=== PATIENT | male | born 1970 | race Two or more races ===

== ENCOUNTER → 2016-11-16 | Emergency (ER) | payer SELFPAY ==
[~2016-11-16] VITALS: Ht 170.2 cm; Wt 72.6 kg
[~2016-11-16] MED LIST: UNOBMED
[2016-11-16 22:14] VITALS: BP 149/83
[2016-11-16 22:18] LABS: BASOPHILS % (AUTO) 1.4 % (0.0-2.0); EOSINOPHILS % (AUTO) 1.4 % (0.0-3.0); MEAN CORPUSCULAR HEMOGLOBIN 31.7 PG (27.0-31.0); MEAN CORPUSCULAR HGB CONC 32.9 G/DL (32.0-36.0); MEAN CORPUSCULAR VOLUME 96 FL (80-99); MEAN PLATELET VOLUME 7.2 FL (6.5-10.1); MONOCYTES % (AUTO) 6.2 % (1.0-10.0); NEUTROPHILS % (AUTO) 57.9 % (45.0-75.0); PLATELET COUNT 278 K/UL (150-450); RED BLOOD COUNT 4.24 M/UL (4.70-6.10); RED CELL DISTRIBUTION WIDTH 12.2 % (11.6-14.8); WHITE BLOOD COUNT 8.9 K/UL (4.8-10.8)
[2016-11-16 22:35] LABS: ACETAMINOPHEN < 10 ug/mL (10-30); ALCOHOL < 10 mg/dL; SODIUM 142 mEQ/L (135-145)
[2016-11-16 22:38] LABS: ALANINE AMINOTRANSFERASE 58 U/L (3-41); ANION GAP 12 (5-15); ASPARTATE AMINO TRANSFERASE 71 U/L (5-40); CALCIUM 9.1 mg/dL (8.6-10.2); CARBON DIOXIDE 31 mEQ/L (20-30); CHLORIDE 99 mEQ/L (98-107); CREATININE 1.1 mg/dL (0.7-1.2); GLOMERULAR FILTRATION RATE > 60 mL/min (>60); HEMOLYSIS 2; POTASSIUM 4.2 mEQ/L (3.4-4.9); TOTAL PROTEIN 6.4 g/dL (6.6-8.7)
--- NOTE | 2016-11-16 23:29 | Emergency Room Report ---
History of Present Illness General Chief Complaint: Behavioral Complaint Source: EMS Present Illness HPI Patient is brought in by EMS. He was acting bizarrely on a city bus and would not get off the bus. So he is brought in by [place] [employer] for bizarre behavior. He is not in custody. He refuses to answer any questions. Allergies: Coded Allergies: UNABLE TO ASSESS (Unverified , 11/16/16) Patient History Past Medical History: unable to obtain Past Surgical History: unable to obtain Pertinent Family History: unable to obtain Nursing Documentation-[facility] Past Medical History Deferred: Pt Cognitively Impaired Review of Systems All Other Systems: limited Physical Exam Vital Signs Date Time Temp Pulse Resp B/P Pulse Ox O2 Delivery O2 Flow Rate FiO2 11/16/16 18:42 98.1 91 18 149/83 99 Sp02 EP Interpretation: reviewed, normal General Appearance: no apparent distress, GCS 15, non-toxic, other - sleeping Head: normocephalic, atraumatic Eyes: bilateral eye PERRL, bilateral eye normal inspection ENT: hearing grossly normal, normal pharynx, no angioedema, normal voice Neck: full range of motion, supple/symm/no masses Respiratory: chest non-tender, lungs clear, normal breath sounds, speaking full sentences Cardiovascular #1: regular rate, rhythm, no edema Gastrointestinal: normal bowel sounds, non tender, soft, non-distended, no guarding, no rebound Rectal: deferred Musculoskeletal: back normal, normal range of motion, non-tender Neurologic: alert, responsive, motor strength/tone normal, other - Non-focal. not cooperative with exam Psychiatric: judgement/insight normal, memory normal, mood/affect normal, no suicidal/homicidal ideation Skin: normal color, no rash, warm/dry, well hydrated Medical Decision Making Diagnostic Impression: Primary Impression: Drug abuse ER Course This patient presents with bizarre behavior consistent with drug abuse. Urine drug screen was not obtained at the time of this dictation secondary to patient noncompliance with urinalysis. Otherwise, laboratory workup is negative and normal CBC, CMP other than a mild transaminitis and negative blood alcohol. The patient is easily arousable but easily agitated. He refuses to answer questions. He is nonfocal on neurologic exam and there is no evidence of trauma. I suspect drug intoxication. This patient is turned over to Dr. Bueno. Final disposition per Dr. Bueno. Labs Test 11/16/16 22:00 White Blood Count 8.9 K/UL (4.8-10.8) Red Blood Count 4.24 M/UL (4.70-6.10) Hemoglobin 13.5 G/DL (14.2-18.0) Hematocrit 40.9 % (42.0-52.0) Mean Corpuscular Volume 96 FL (80-99) Mean Corpuscular Hemoglobin 31.7 PG (27.0-31.0) Mean Corpuscular Hemoglobin Concent 32.9 G/DL (32.0-36.0) Red Cell Distribution Width 12.2 % (11.6-14.8) Platelet Count 278 K/UL (150-450) Mean Platelet Volume 7.2 FL (6.5-10.1) Neutrophils (%) (Auto) 57.9 % (45.0-75.0) Lymphocytes (%) (Auto) 33.0 % (20.0-45.0) Monocytes (%) (Auto) 6.2 % (1.0-10.0) Eosinophils (%) (Auto) 1.4 % (0.0-3.0) Basophils (%) (Auto) 1.4 % (0.0-2.0) Sodium Level 142 mEQ/L (135-145) Potassium Level 4.2 mEQ/L (3.4-4.9) Chloride Level 99 mEQ/L (98-107) Carbon Dioxide Level 31 mEQ/L (20-30) Anion Gap 12 (5-15) Blood Urea Nitrogen 16 mg/dL (7-23) Creatinine 1.1 mg/dL (0.7-1.2) Estimat Glomerular Filtration Rate > 60 mL/min (>60) Glucose Level 101 mg/dL (74-106) Calcium Level 9.1 mg/dL (8.6-10.2) Total Bilirubin 0.3 mg/dL (0.0-1.2) Aspartate Amino Transf (AST/SGOT) 71 U/L (5-40) Alanine Aminotransferase (ALT/SGPT) 58 U/L (3-41) Alkaline Phosphatase 63 U/L (40-129) Total Protein 6.4 g/dL (6.6-8.7) Albumin 4.3 g/dL (3.5-5.2) Globulin 2.1 g/dL Albumin/Globulin Ratio 2.0 (1.0-2.7) Salicylates Level < 1 mg/dL (10-30) Acetaminophen Level < 10 ug/mL (10-30) Serum Alcohol < 10 mg/dL Last Vital Signs Date Time Temp Pulse Resp B/P Pulse Ox O2 Delivery O2 Flow Rate FiO2 11/16/16 22:14 98.1 70 18 149/83 99 Condition: Stable Referrals: NOT CHOSEN JACKSON/,REFERRING (PCP) SARITA LESLIE D.O. Nov 16, 2016 23:29
[2016-11-17 00:14] VITALS: BP 137/85
[2016-11-17 06:25] VITALS: BP 129/80
[2016-11-17 06:39] VITALS: BP 129/80
== END | disposition home or self-care (01) ==
LOC: EDBD 18:50 → EMR 20:25
DX: F19.10 Other psychoactive substance abuse, uncomplicated (principal)
CPT/HCPCS: 36415; 80053; 85025; 99283; G0480; 80329